=== PATIENT | male | born 1995 | race African-American/Black ===

== ENCOUNTER 2016-12-17 14:54 | Emergency (ER) | payer SELFPAY ==
[2016-12-17 15:16] VITALS: BP 138/59
[2016-12-17] MEDS ORDERED: Tetan/Diph/Pertus SYR(Tdap)* 0.5 ML SYR(BOOSTRIX) use SYR IM ONE (15:16)
--- NOTE | 2016-12-17 15:17 | UC ---
Laceration HPI - HPI Summary HPI Summary: 21 YEAR OLD MALE PRESENTS WITH COMPLAINS OF LEFT 3RD FINGER TIP LACERATION. - History Of Current Complaint Chief Complaint: UCLaceration Stated Complaint: FINGER LAC Time Seen by Provider: 12/17/16 15:13 - Allergies/Home Medications Allergies/Adverse Reactions: Allergies Allergy/AdvReac Type Severity Reaction Status Date / Time No Known Allergies Allergy Verified 04/13/16 09:25 PMH/Surg Hx/FS Hx/Imm Hx Previously Healthy: Yes Other History Of: Negative For: HIV, Hepatitis B, Anticoagulant Therapy - Surgical History Surgical History: Yes Surgery Procedure, Year, and Place: repair of left metatarsal- broken in the past - Family History Known Family History: Positive: Diabetes - Grandmother Negative: Cardiac Disease, Hypertension - Social History Alcohol Use: Occasionally Substance Use Type: Marijuana Substance Use Comment - Amount & Last Used: weekly Smoking Status (MU): Never Smoked Tobacco Review of Systems Constitutional: Negative Skin: Negative Eyes: Negative ENT: Negative Respiratory: Negative Cardiovascular: Negative Gastrointestinal: Negative Genitourinary: Negative Motor: Negative Neurovascular: Negative Musculoskeletal: Negative Neurological: Negative Psychological: Negative All Other Systems Reviewed And Are Negative: Yes Physical Exam Triage Information Reviewed: Yes Eye Exam: Normal ENT Exam: Normal Dental Exam: Normal Neck exam: Normal Neck: Positive: 1 Respiratory Exam: Normal Cardiovascular Exam: Normal Abdominal Exam: Normal Musculoskeletal Exam: Normal Neurological Exam: Normal Psychological Exam: Normal Skin: Positive: Other - LACERATION 3RD LEFT FINGER TIP Laceration Course/Dx - Differential Dx - Laceration/Wound Provider Diagnoses: LEFT 3RD FINGER TIP LACERATION Discharge - Discharge Plan Condition: Stable Disposition: HOME Prescriptions: Cephalexin CAP* [Keflex CAP*] 500 mg PO TID #30 cap Patient Education Materials: Laceration (ED) Referrals: Roger Clayton MD [Primary Care Provider] - If Needed
== END 2016-12-17 15:51 | disposition home or self-care (01) ==
LOC: UCEAST 14:54
DX: S61.213A Laceration without foreign body of left middle finger without damage to nail, initial encounter (principal); W45.8XXA Other foreign body or object entering through skin, initial encounter; Y93.9 Activity, unspecified; Y92.9 Unspecified place or not applicable; F12.90 Cannabis use, unspecified, uncomplicated; Z23 Encounter for immunization
CPT/HCPCS: 12001; 90471; 90715; 99212; G0463

== ENCOUNTER 2016-12-23 10:06 | Emergency (ER) | payer SELFPAY ==
[2016-12-23 11:43] VITALS: BP 118/65
[2016-12-23] MEDS ORDERED: Lidocaine/Epineph/Tetraca SOL* (LET solution) 4 ML BTL TOPICAL ONE (12:26)
--- NOTE | 2016-12-23 12:27 | UC ---
HPI Wound/Suture Re-check - HPI Summary HPI Summary: 21 YEAR OLD MALE PRESENTS WITH FOR WOUND CHECK OF LEFT MIDDLE FINGER. ON A SIDE NOTE PATIENT WAS SEEN HERE A FEW DAYS AGO AND HIS LACERATION WAS CLOSED WITH DERMABOND. - History Of Current Complaint Chief Complaint: UCWounds Stated Complaint: WOUND RECHECK Time Seen by Provider: 12/23/16 12:22 Hx Obtained From: Patient Onset/Duration: Gradual Onset Severity: Mild Pain Scale Used: 0-10 Numeric - 3 - Allergies/Home Medications Allergies/Adverse Reactions: Allergies Allergy/AdvReac Type Severity Reaction Status Date / Time No Known Allergies Allergy Verified 12/23/16 11:43 PMH/Surg Hx/FS Hx/Imm Hx Previously Healthy: Yes Other History Of: Negative For: HIV, Hepatitis B, Anticoagulant Therapy - Surgical History Surgical History: Yes Surgery Procedure, Year, and Place: repair of left metatarsal- broken in the past - Family History Known Family History: Positive: Diabetes - Grandmother Negative: Cardiac Disease, Hypertension - Social History Alcohol Use: Occasionally Substance Use Type: Marijuana Substance Use Comment - Amount & Last Used: weekly Smoking Status (MU): Never Smoked Tobacco - Immunization History Most Recent Tetanus Shot: 12/24 Review of Systems Constitutional: Negative Skin: Other - LEFT MIDDLE FINGER WOUND WITH SKIN SLOUGHING Eyes: Negative ENT: Negative Respiratory: Negative Cardiovascular: Negative Gastrointestinal: Negative Genitourinary: Negative Motor: Negative Neurovascular: Negative Musculoskeletal: Negative Neurological: Negative Psychological: Negative All Other Systems Reviewed And Are Negative: Yes Physical Exam Triage Information Reviewed: Yes Vital Signs: Initial Vital Signs Temp 37.0 C 12/23/16 11:39 Pulse 100 12/23/16 11:39 Resp 20 12/23/16 11:39 BP 118/65 12/23/16 11:39 Pulse Ox 100 12/23/16 11:39 Eye Exam: Normal ENT Exam: Normal Dental Exam: Normal Neck exam: Normal Neck: Positive: 1 Respiratory Exam: Normal Cardiovascular Exam: Normal Abdominal Exam: Normal Musculoskeletal Exam: Normal Neurological Exam: Normal Psychological Exam: Normal Skin: Positive: Other - LEFT MIDDLE FINGER WOUND WITH SKIN SLOUGHING Procedures - Procedure Summary Procedure Summary: GELFOAM PLACEMENT OF LEFT MIDDLE FINGER. Course/Dx - Differential Dx - Laceration/Wound Provider Diagnoses: LLEFT MIDDLE FINGER WOUND CHECK Discharge - Discharge Plan Condition: Stable Disposition: HOME Patient Education Materials: Acute Wound Care (ED) Forms: *Work Release Referrals: No Primary Care Phys,NOPCP [Primary Care Provider] -
[2016-12-23] MEDS ORDERED: Gelfoam Sponge SIZE 100* SPONGE TOPICAL ONE (12:28)
[2016-12-23] MEDS ORDERED: Gelfoam 12-7 ADSORBABL SPONGE* 1 EA SPONGE ONE (12:38)
[2016-12-23] MEDS ORDERED: Gelfoam 12-7 ADSORBABL SPONGE* 1 EA SPONGE TOPICAL ONE (12:40)
== END 2016-12-23 13:21 | disposition home or self-care (01) ==
LOC: UCEAST 10:06
DX: Z09 Encounter for follow-up examination after completed treatment for conditions other than malignant neoplasm (principal)
CPT/HCPCS: 99212; A9270-GY; G0463